=== PATIENT | male | born 1995 | race Caucasian/White ===

== ENCOUNTER 2020-11-16 07:19 | Emergency (ER) | payer BC, OTHER ==
[2020-11-16 08:40] LABS: RED BLOOD COUNT 5.57 M/UL (4.20-5.50); WHITE BLOOD COUNT 9.9 K/UL (4.5-11.0)
[2020-11-16 09:01] LABS: BUN/CREATININE RATIO 18 (0-10)
== END 2020-11-16 13:20 | disposition home or self-care (01) ==
LOC: ER1 07:19
PROVIDERS: Emergency Medicine
DX: M62.82 Rhabdomyolysis (principal); R10.13 Epigastric pain; R07.89 Other chest pain; F17.290 Nicotine dependence, other tobacco product, uncomplicated
CPT/HCPCS: 71045; 80053; 82550; 82553; 83690; 83874; 84484; 85025; 93005; 99285; Q9967